=== PATIENT | female | born 1945 | race Caucasian/White ===

== ENCOUNTER 2017-08-23 07:03 | Observation (INO) | payer MEDICARE, OTHER, BC ==
[~2017-08-23] VITALS: Ht 160 cm; Wt 72.5 kg
[2017-08-23 07:05] VITALS: BP 175/100; PULSE 70; RESP 16; TEMP 98.1; O2SAT 96
[2017-08-23] MEDS ORDERED: MAGN250T11 PO (07:39)
[2017-08-23] MEDS ORDERED: SPIR25 PO (07:39)
[2017-08-23] MEDS ORDERED: CALC12502 PO (07:39)
[2017-08-23] MEDS ORDERED: MACR100C3 PO (07:39)
[2017-08-23] MEDS ORDERED: PRIL20TA2 PO (07:39)
[2017-08-23] MEDS ORDERED: CORE25TA PO (07:39)
[2017-08-23] MEDS ORDERED: COUM5TAB PO (07:39)
--- NOTE | 2017-08-23 07:42 | PD ---
HPI Chief Complaint: Dizziness Time Seen by Provider: 07:23 Travel History International Travel<30 days: No Contact w/Intl Traveler<30days: No Traveled to known affect area: No History of Present Illness HPI 72-year-old female complains of dizziness and chest pain. Patient states that she started having dizziness and UTI symptom 3 days ago. Patient states that the dizziness was transient and got better. Patient states that she had nausea with the dizziness. Patient was seen at urgent care Center 3 days ago and was diagnosed with UTI. Patient was given prescription for Macrodantin. Patient has been taking the medication as directed. Patient started having dizziness again since last night. Patient states that she has nausea with the dizziness. Patient states that the dizziness is worse with head movement. Patient started having substernal chest pressure since last night also. Patient denies any pain radiation. Patient denies palpitation diaphoresis. Patient has history of viral cardiomyopathy. Patient states that her ejection fraction around 45-50%. Patient denies history hypertension, diabetes. Patient has history of hyperlipidemia. Patient has family history of heart disease. Patient is a nonsmoker. Patient states that the chest discomfort is intermittent. Patient denies any chest pain now. Patient has history of hypercoagulable state and on Coumadin. PFSH Past Medical History Hx Anticoagulant Therapy: Yes Cardiomyopathy: Yes (Dr. Oliver ) Cardiovascular Problems: Yes High Cholesterol: Yes Diminished Hearing: No Medical other: Yes (hyperphospholipid syndrome since , on coumadin) ?: Not Past Surgical History Hysterectomy: Yes Social History Alcohol Use: No Tobacco Use: No Substance Use: No Allergies-Medications (Allergen,Severity, Reaction): Coded Allergies: codeine (Verified Allergy, Severe, Rash, 08/23/17) nut - unspecified (Verified Allergy, Severe, Shortness of Breath, 08/23/17) Reported Meds & Prescriptions Reported Meds & Active Scripts Active Reported Macrodantin (Nitrofurantoin Macrocrystal) 100 Mg Cap 100 Mg PO QID Calcium (Oyster Shell) 500 Mg Calcium (1250 Mg) Tab 500 Mg PO DAILY Prilosec (Omeprazole Magnesium) 20 Mg Tab 25 Mg PO DIRECTED TAKE NEEDED FOR GERD Magnesium Oxide 250 Mg Tab 250 Mg PO DAILY Coumadin (Warfarin) 5 Mg Tab 5 Mg PO DAILY TAKE 2.5MG ON MON,WED,FRI AND 5MG TUES, THDIANE, SAT, SUN Aldactone (Spironolactone) 25 Mg Tab 25 Mg PO DAILY Coreg (Carvedilol) 25 Mg Tab 25 Mg PO BID Review of Systems General / Constitutional: No: Fever Eyes: No: Visual changes HENT: Positive: Lightheadedness, No: Headaches Cardiovascular: Positive: Chest Pain or Discomfort Respiratory: No: Shortness of Breath Gastrointestinal: No: Abdominal Pain Genitourinary: No: Dysuria Musculoskeletal: No: Pain Skin: No Rash Neurologic: No: Weakness Psychiatric: No: Depression Endocrine: No: Polydipsia Hematologic/Lymphatic: No: Easy Bruising Physical Exam Narrative GENERAL: Well-nourished, well-developed patient. SKIN: Focused skin assessment warm/dry. HEAD: Normocephalic. EYES: No scleral icterus. No injection or drainage. Pupil 1.5 mm equal reactive. TM: Clear. NECK: Supple, trachea midline. No JVD or lymphadenopathy. CARDIOVASCULAR: Regular rate and rhythm without murmurs, gallops, or rubs. RESPIRATORY: Breath sounds equal bilaterally. No accessory muscle use. GASTROINTESTINAL: Abdomen soft, non-tender, nondistended. MUSCULOSKELETAL: No cyanosis, or edema. BACK: Nontender without obvious deformity. No CVA tenderness. Neurologic exam normal. Data Data Last Documented VS Vital Signs Date Time Temp Pulse Resp B/P (MAP) Pulse Ox O2 Delivery O2 Flow Rate FiO2 08/23/17 07:05 98.1 70 16 175/100 (125) 96 Room Air Orders Orders Electrocardiogram (08/23/17 ) Electrocardiogram (08/23/17 07:33) Complete Blood Count With Diff (08/23/17 07:33) Comprehensive Metabolic Panel (08/23/17 07:33) Creatine Kinase (Cpk) (08/23/17 07:33) Troponin I (08/23/17 07:33) B-Type Natriuretic Peptide (08/23/17 07:33) Prothrombin Time / Inr (Pt) (08/23/17 07:33) Act Partial Throm Time (Ptt) (08/23/17 07:33) Chest, Single Ap (08/23/17 07:33) Iv Access Insert/Monitor (08/23/17 07:33) Ecg Monitoring (08/23/17 07:33) Oximetry (08/23/17 07:33) Meclizine (Antivert) (08/23/17 07:45) Labs Laboratory Tests Test 08/23/17 07:30 White Blood Count 7.9 TH/MM3 Red Blood Count 4.54 MIL/MM3 Hemoglobin 15.4 GM/DL Hematocrit 44.8 % Mean Corpuscular Volume 98.7 FL Mean Corpuscular Hemoglobin 33.8 PG Mean Corpuscular Hemoglobin Concent 34.2 % Red Cell Distribution Width 12.6 % Platelet Count 278 TH/MM3 Mean Platelet Volume 7.5 FL Neutrophils (%) (Auto) 65.3 % Lymphocytes (%) (Auto) 27.7 % Monocytes (%) (Auto) 5.5 % Eosinophils (%) (Auto) 1.0 % Basophils (%) (Auto) 0.5 % Neutrophils # (Auto) 5.1 TH/MM3 Lymphocytes # (Auto) 2.2 TH/MM3 Monocytes # (Auto) 0.4 TH/MM3 Eosinophils # (Auto) 0.1 TH/MM3 Basophils # (Auto) 0.0 TH/MM3 CBC Comment DIFF FINAL Differential Comment Prothrombin Time 16.5 SEC Prothromb Time International Ratio 1.6 RATIO Activated Partial Thromboplast Time 32.0 SEC Blood Urea Nitrogen 12 MG/DL Creatinine 0.68 MG/DL Random Glucose 95 MG/DL Total Protein 7.1 GM/DL Albumin 3.8 GM/DL Calcium Level 8.9 MG/DL Alkaline Phosphatase 72 U/L Aspartate Amino Transf (AST/SGOT) 21 U/L Alanine Aminotransferase (ALT/SGPT) 24 U/L Total Bilirubin 0.8 MG/DL Sodium Level 137 MEQ/L Potassium Level 4.1 MEQ/L Chloride Level 103 MEQ/L Carbon Dioxide Level 26.0 MEQ/L Anion Gap 8 MEQ/L Estimat Glomerular Filtration Rate 85 ML/MIN Total Creatine Kinase 82 U/L Troponin I LESS THAN 0.02 NG/ML B-Type Natriuretic Peptide 33 PG/ML MDM Medical Decision Making Medical Screen Exam Complete: Yes Emergency Medical Condition: Yes Interpretation(s) 8:41 AM. Last Impressions Chest X-Ray 08/23/17732 Signed Impressions: Service Date/Time: Wednesday, August 23, 2017 07:50 - CONCLUSION: No acute disease. Doroteo Cheung MD 8:41 AM. CBC within normal limit. CMP within normal limit. Cardiac enzymes are normal. INR 1.6. Differential Diagnosis Differential diagnosis including positional vertigo, musculoskeletal, angina, [place] , PE, pneumothorax. Narrative Course 72-year-old female with dizziness and chest pain. History of positional vertigo in the past. History of cardiomyopathy. Meclizine 25 mg by mouth given. Diagnosis Primary Impression: Chest pain Qualified Codes: R07.9 - Chest pain, unspecified Additional Impression: Acute onset of severe vertigo Admitting Information Admitting Physician Requests: Observation John Leavitt MD Aug 23, 2017 07:42
[2017-08-23] MEDS ORDERED: MECLIZINE HCL 25 MG TAB PO ONE (07:45)
[2017-08-23 07:54] LABS: AUTOMATED NEUTROPHIL # 5.1 TH/MM3 (1.8-7.7); BASOPHIL % 0.5 % (0.0-2.0); EOSINOPHIL # 0.1 TH/MM3 (0-0.4); HEMATOCRIT 44.8 % (35.0-46.0); HEMOGLOBIN 15.4 GM/DL (11.6-15.3); LYMPH % 27.7 % (9.0-44.0); LYMPHOCYTE # 2.2 TH/MM3 (1.0-4.8); MEAN CELL VOLUME 98.7 FL (80.0-100.0); MEAN CORPUSCULAR HEMOGLOBIN 33.8 PG (27.0-34.0); MEAN CORPUSCULAR HGB CONC 34.2 % (32.0-36.0); MEAN PLATELET VOLUME 7.5 FL (7.0-11.0); MONO % 5.5 % (0.0-8.0); MONOCYTE # 0.4 TH/MM3 (0-0.9); NEUT % 65.3 % (16.0-70.0); PLATELET COUNT 278 TH/MM3 (150-450); RED BLOOD COUNT 4.54 MIL/MM3 (4.00-5.30); RED CELL DISTRIBUTION WIDTH 12.6 % (11.6-17.2); WHITE BLOOD COUNT 7.9 TH/MM3 (4.0-11.0)
[2017-08-23 08:02] LABS: INTERNATIONAL NORMALIZED RATIO 1.6 RATIO; PROTHROMBIN TIME - PATIENT 16.5 SEC (9.8-11.6)
[2017-08-23 08:07] LABS: ALBUMIN 3.8 GM/DL (3.4-5.0); ALT (GPT) 24 U/L (10-53); AST (GOT) 21 U/L (15-37); BLOOD UREA NITROGEN 12 MG/DL (7-18); CALCIUM 8.9 MG/DL (8.5-10.1); CHLORIDE 103 MEQ/L (98-107); CREATININE 0.68 MG/DL (0.50-1.00); GLOMERULAR FILTRATION RATE 85 ML/MIN (>89); GLUCOSE,RANDOM 95 MG/DL (74-106); SODIUM (NA) 137 MEQ/L (136-145)
[2017-08-23 08:11] LABS: ALKALINE PHOSPHATASE 72 U/L (45-117); TOTAL BILIRUBIN ADULT 0.8 MG/DL (0.2-1.0); TOTAL PROTEIN 7.1 GM/DL (6.4-8.2); TROPONIN I LESS THAN 0.02 NG/ML (0.02-0.05)
--- NOTE | 2017-08-23 08:28 | RADRPT ---
EXAM DATE/TIME: 08/23/2017 07:50 [facility] COMPARISON: No previous studies available for comparison. INDICATIONS : Chest pains with pressure and dizziness. MEDICAL HISTORY : None. SURGICAL HISTORY : None. ENCOUNTER: Initial ACUITY: 1 day PAIN SCORE: 7/10 LOCATION: Bilateral chest FINDINGS: A single view of the chest demonstrates the lungs to be symmetrically aerated without evidence of mas s, infiltrate or effusion. The cardiomediastinal contours are unremarkable. Osseous structures are intact. Left humeral prosthesis. CONCLUSION: No acute disease. Doroteo Cheung MD on August 23, 2017 at 8:25 Board Certified Radiologist. This report was verified electronically.
[2017-08-23 09:00] VITALS: BP 142/82; PULSE 61; RESP 17; O2SAT 97
[2017-08-23] MEDS ORDERED: SODIUM CHLORIDE 0.9% FLUSH 10 ML FLUSH IV FLUSH SCH (09:00)
[2017-08-23] MEDS ORDERED: SODIUM CHLORIDE 0.9% FLUSH 10 ML FLUSH IV FLUSH PRN (09:00)
[2017-08-23] MEDS ORDERED: ONDANSETRON HCL 4 MG/2 ML VIAL IV PUSH PRN (09:00)
[2017-08-23] MEDS ORDERED: ACETAMINOPHEN 500 MG CPLT PO PRN (09:00)
[2017-08-23 09:50] VITALS: BP 160/86; PULSE 60; RESP 16; O2SAT 96
--- NOTE | 2017-08-23 10:24 | HHI.HP ---
HPI Primary Care Physician Unknown Chief Complaint Chest pain History of Present Illness This is a 72-year-old female that presents to ED via private vehicle with complaints of chest pain and dizziness. States she has history of a cardiomyopathy secondary to bilateral illness in 2001 with recent 2-D echo in [place] having an EF of 45-50%. States that her first symptoms began 5 days ago, she was awoken and felt as if the room was spinning. No other symptoms. She went back to sleep. When she woke up afterwards she was feeling okay. However 3 days ago she began to have burning and frequency with urination as well as hematuria and went to an urgent care center was placed on Macrodantin. States that the symptoms have began to improve. No longer having hematuria in the burning with urination has resolved. Still little frequent urination. No fevers. Also over the last 3 days she's had intermittent dizziness and this seems ago has worsened. At times it feels as if the room is spinning and L at times it feels as if she is just unsteady on her feet. Over the last 2 days she has had a funny sensation in the center of her chest. It will usually last 5-10 minutes. The sensation has also been intermittently associated with dizziness. States it is not a pain. States it feels similar to when she was told that she was having PVCs. Had the same sensation and dizziness while in [place] a few years ago and had a Holter monitor and was told that it was PVCs. He was told to take magnesium supplementation. Carvedilol dose was increased. She has had intermittent nausea with the dizziness and with the sensation that she has had the center of her chest. No shortness of breath or diaphoresis. States that she had a cardiac catheterization in 2001 when she was diagnosed with a cardiomyopathy that was nonischemic. States she was told there are no blockages. She had a stress test 2 years ago in [place] and was told that she did fine. It was an ETT. 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 Oliver once a year and has an appointment with him at the end of August. States the dizziness is worsened when she sits up or turns her head. She was given meclizine in the ED which has not changed her symptoms, however this was just given to her moments ago. Denies swelling in her legs. Denies calf pain. Review of Systems General: Patient denies fevers, chills recent, and recent travel HEENT: Patient denies headache, sore throat, difficulty swallowing. Cardiovascular: Has the chest discomfort as mentioned above. Denies sensation of heart beating rapidly or irregularly. No syncope. Denies diaphoresis. Respiratory: Denies shortness of breath or inspirational chest discomfort. Denies coughing wheezing or hemoptysis. GI: She has had intermittent nausea. Patient denies vomiting, diarrhea, abdominal pain, bloody stools. : Had frequency, dysuria, and hematuria. Dysuria and hematuria has resolved since being on antibiotics however she still is a little bit of frequency. Musculoskeletal: Patient denies joint pain or edema. Denies calf pain or edema. Neurovascular: She has felt dizzy. Patient denies numbness, tingling, weakness in extremities. Denies headache. Endocrine: Denies polyuria and polydipsia. Hematologic: Denies easy bruising. Skin: Denies rash or itching. Past Family Social History Allergies: Coded Allergies: codeine (Verified Allergy, Severe, Rash, 08/23/17) nut - unspecified (Verified Allergy, Severe, Shortness of Breath, 08/23/17) Past Medical History History of a nonischemic cardiomyopathy. States it was secondary to bilateral illness in 2001. Last echo was June 2017 in [place] and she states EF was 45- 50%. 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 Has had no DVTs or PEs for 40-45 years. Has been on warfarin for quite some time. Checks her INR is at home and 5 days ago is 1.8. GERD. Denies CAD, hyperlipidemia, diabetes, and hypertension. Past Surgical History Hysterectomy. Reported Medications Reported Meds & Active Scripts Active Reported Macrodantin (Nitrofurantoin Macrocrystal) 100 Mg Cap 100 Mg PO QID Calcium (Oyster Shell) 500 Mg Calcium (1250 Mg) Tab 500 Mg PO DAILY Prilosec (Omeprazole Magnesium) 20 Mg Tab 25 Mg PO DIRECTED TAKE NEEDED FOR GERD Magnesium Oxide 250 Mg Tab 250 Mg PO DAILY Coumadin (Warfarin) 5 Mg Tab 5 Mg PO DAILY TAKE 2.5MG ON MON,WED,FRI AND 5MG , , MON, MON Aldactone (Spironolactone) 25 Mg Tab 25 Mg PO DAILY Coreg (Carvedilol) 25 Mg Tab 25 Mg PO BID Active Ordered Medications Current Medications Medications (Trade) Dose Ordered Sig/Yesenia Route Start Time Stop Time Status Last Admin (NS Flush) 2 ml UNSCH PRN IV FLUSH 08/23/17 09:00 (NS Flush) 2 ml BID IV FLUSH 08/23/17 09:00 (Tylenol) 500 mg Q4H PRN PO 08/23/17 09:00 (Zofran Inj) 4 mg Q6H PRN IV PUSH 08/23/17 09:00 Family History Her mother had CAD with onset in her 70s. Social History Lifetime nonsmoker. Denies alcohol or illicit drugs. She lives alone, she is a . Physical Exam Vital Signs Vital Signs Date Time Temp Pulse Resp B/P (MAP) Pulse Ox O2 Delivery O2 Flow Rate FiO2 08/23/17 09:50 60 16 160/86 (110) 96 Room Air 08/23/17 09:00 61 17 142/82 (102) 97 Room Air 08/23/17 07:05 98.1 70 16 175/100 (125) 96 Room Air Physical Exam GENERAL: This is a well-nourished, well-developed patient, in no apparent distress. Patient speaks in clear complete sentences. Patient is pleasant. HEENT: Head is atraumatic and normocephalic. Neck is supple without lymphadenopathy and trachea is midline. No JVD or carotid bruits. CARDIOVASCULAR: Regular rate and rhythm without murmurs, gallops, or rubs. RESPIRATORY: Clear to auscultation. Breath sounds equal bilaterally. No wheezes , rales, or rhonchi. Chest wall is nontender. No use of accessory muscles. GASTROINTESTINAL: Abdomen is nontender, nondistended. Abdomen soft. No obvious pulsatile mass or bruit. No CVA tenderness. Strong femoral pulses bilaterally. Normal bowel sounds in all quadrants. MUSCULOSKELETAL: Patient is moving upper and lower extremities freely. No calf tenderness or edema, no Homans sign. Strong pulses in upper and lower extremities. NEUROLOGICAL: Patient is alert and oriented. Cranial nerves 2-12 are grossly intact. No focal deficits and speech is clear. SKIN: No rash and turgor is normal. Laboratory Laboratory Tests Test 08/23/17 07:30 White Blood Count 7.9 Red Blood Count 4.54 Hemoglobin 15.4 Hematocrit 44.8 Mean Corpuscular Volume 98.7 Mean Corpuscular Hemoglobin 33.8 Mean Corpuscular Hemoglobin Concent 34.2 Red Cell Distribution Width 12.6 Platelet Count 278 Mean Platelet Volume 7.5 Neutrophils (%) (Auto) 65.3 Lymphocytes (%) (Auto) 27.7 Monocytes (%) (Auto) 5.5 Eosinophils (%) (Auto) 1.0 Basophils (%) (Auto) 0.5 Neutrophils # (Auto) 5.1 Lymphocytes # (Auto) 2.2 Monocytes # (Auto) 0.4 Eosinophils # (Auto) 0.1 Basophils # (Auto) 0.0 CBC Comment DIFF FINAL Differential Comment Prothrombin Time 16.5 Prothromb Time International Ratio 1.6 Activated Partial Thromboplast Time 32.0 Blood Urea Nitrogen 12 Creatinine 0.68 Random Glucose 95 Total Protein 7.1 Albumin 3.8 Calcium Level 8.9 Alkaline Phosphatase 72 Aspartate Amino Transf (AST/SGOT) 21 Alanine Aminotransferase (ALT/SGPT) 24 Total Bilirubin 0.8 Sodium Level 137 Potassium Level 4.1 Chloride Level 103 Carbon Dioxide Level 26.0 Anion Gap 8 Estimat Glomerular Filtration Rate 85 Total Creatine Kinase 82 Troponin I LESS THAN 0.02 B-Type Natriuretic Peptide 33 Result Diagram: 08/23/1772908/23/17729 Imaging Last 48 hours Impressions Chest X-Ray 08/23/17732 Signed Impressions: Service Date/Time: Wednesday, August 23, 2017 07:50 - CONCLUSION: No acute disease. Doroteo Cehung MD Course Initial EKG is sinus rhythm rate of [address] segment depressions or elevations. Caprini VTE Risk Assessment Caprini VTE Risk Assessment: Mod/High Risk (score >= 2) Caprini Risk Assessment Model Point Value = 1 Point Value = 2 Point Value = 3 Point Value = 5 Age 41-60 Minor surgery BMI > 25 kg/m2 Swollen legs Varicose veins or History of unexplained or recurrent spontaneous Oral contraceptives or hormone replacement Sepsis (< 1 month) Serious lung disease, including pneumonia (< 1 month) Abnormal pulmonary function Acute myocardial infarction Congestive heart failure (< 1 month) History of inflammatory bowel disease Medical patient at bed rest Age 61-74 Arthroscopic surgery Major open surgery (> 45 min) Laparoscopic surgery (> 45 min) Malignancy Confined to bed (> 72 hours) Immobilizing plaster cast Central venous access Age >= 75 History of VTE Family history of VTE Factor V Leiden Prothrombin [id number] Lupus anticoagulant Anticardiolipin antibodies Elevated serum homocysteine Heparin-induced thrombocytopenia Other congenital or acquired thrombophilia Stroke (< 1 month) Elective arthroplasty Hip, pelvis, or leg fracture Acute spinal cord injury (< 1 month) Prophylaxis Regimen Total Risk Factor Score Risk Level Prophylaxis Regimen 0-1 Low Early ambulation 2 Moderate Order ONE of the following: *Sequential Compression Device (SCD) *Heparin 5000 units SQ BID 3-4 Higher Order ONE of the following medications: *Heparin 5000 units SQ TID *Enoxaparin/Lovenox 40 mg SQ daily (WT < 150 kg, CrCl > 30 mL/min) *Enoxaparin/Lovenox 30 mg SQ daily (WT < 150 kg, CrCl > 10-29 mL/min) *Enoxaparin/Lovenox 30 mg SQ BID (WT < 150 kg, CrCl > 30 mL/min) AND/OR *Sequential Compression Device (SCD) 5 or more Highest Order ONE of the following medications: *Heparin 5000 units SQ TID (Preferred with Epidurals) *Enoxaparin/Lovenox 40 mg SQ daily (WT < 150 kg, CrCl > 30 mL/min) *Enoxaparin/Lovenox 30 mg SQ daily (WT < 150 kg, CrCl > 10-29 mL/min) *Enoxaparin/Lovenox 30 mg SQ BID (WT < 150 kg, CrCl > 30 mL/min) AND *Sequential Compression Device (SCD) Assessment and Plan Assessment and Plan * Chest pain: Patient complains of a sensation in her chest that was odd. [place] similar to when she was having PVCs in the past that was detected on a Holter monitor. Patient will continue to have serial cardiac enzymes and EKGs for ruling out purposes. She'll be seen by Dr. Damion Hutton of cardiology in the chest pain center and at that time further plan will be decided. * Cardiomyopathy: Patient is on medication for this. We will continue this. * Hyper phospholipid syndrome: Doing warfarin this morning pending evaluation by Dr. Damion Hutton for further plan. She will have SCDs. Will resume medication afterwards. Patient is stable at this time. She is agreeable to this plan. Camacho Johns Aug 23, 2017 10:24
[2017-08-23] MEDS ORDERED: WARF-18 PO ×2 (10:33)
[2017-08-23 11:01] VITALS: BP 163/84; PULSE 64; RESP 16; O2SAT 97
[2017-08-23 11:31] LABS: TROPONIN I LESS THAN 0.02 NG/ML (0.02-0.05)
[2017-08-23] MEDS ORDERED: CARVEDILOL 12.5 MG TAB PO SCH (13:15)
[2017-08-23] MEDS ORDERED: SPIRONOLACTONE 25 MG TAB PO SCH (13:15)
[2017-08-23] MEDS ORDERED: MAGNESIUM OXIDE 400 MG TAB PO SCH (13:30)
[2017-08-23] MEDS ORDERED: PILL SPLITTER OTHER PRN (13:30)
--- NOTE | 2017-08-23 14:02 | EKG ---
Date Performed: 08/23/2017 Time Performed: 10:48:57 PTAGE: 72 years EKG: Sinus rhythm MINIMAL VOLTAGE CRITERIA FOR LVH, CONSIDER NORMAL VARIANT BORDERLINE ECG No significant change from prior electrocardiogram. PREVIOUS TRACING : 08/23/2017 07.24 DOCTOR: Aristides De Jesus Interpretating Date/Time 08/23/2017 14:01:52
--- NOTE | 2017-08-23 14:08 | EKG ---
Date Performed: 08/23/2017 Time Performed: 07:24:46 PTAGE: 72 years EKG: Baseline artifact present Sinus rhythm BORDERLINE LEFT AXIS DEVIATION Nonspecific T wave changes ABNORMAL ECG NO PREVIOUS TRACING DOCTOR: Aristides De Jesus Interpretating Date/Time 08/23/2017 14:07:21
[2017-08-23] MEDS ORDERED: REGADENOSON INJ 0.4 MG/5 ML SYR ONE (14:56)
--- NOTE | 2017-08-23 17:02 | RADRPT ---
EXAM DATE/TIME: 08/23/2017 14:45 [facility] COMPARISON: No previous studies available for comparison. INDICATIONS : Chest pain and dizziness. Angina. DOSE: 25.8 mCi Tc99m Myoview at stress. 8.3 mCi Tc99m Myoview at rest. 0.4 mg Lexiscan STRESS SYMPTOMS: Dyspnea, lightheadedness and chest pressure. EJECTION FRACTION: 60% MEDICAL HISTORY : Hypercholesterolemia. hyperphospholipid syndrome. SURGICAL HISTORY : Rotator cuff, left. ENCOUNTER: Initial ACUITY: 1 day PAIN SCALE: 0/10 LOCATION: Substernal chest TECHNIQUE: The patient underwent pharmacologic stress with infusion of prescribed dose. Continuous ECG tracing was monitored during stress. Gated SPECT imaging was performed after stress and conventional SPECT i maging was performed at rest. The examination was performed on a SPECT/CT scanner, both attenuation and non-corrected datasets were reviewed. FINDINGS: DISTRIBUTION: The maximum perfused segment at stress is in the anterior lateral wall. PERFUSION STUDY: There is a summed stress score of 8. There is a small to moderate fixed defect involving the anterior wall with no reversibility. GATED STUDY: There is intact wall motion and thickening without hypokinetic or dyskinetic segments. CONCLUSION: 1. Small to moderate fixed defect involving the anterior wall which could represent an area of infarc tion. 2. Normal wall motion and calculated ejection fraction. RISK CATEGORY: Low (<1% Annual Mortality Rate) Herb Dutton MD on August 23, 2017 at 16:56 Board Certified Radiologist. This report was verified electronically.
--- NOTE | 2017-08-23 17:06 | HHI.DCPOC ---
Discharge Care Plan Diagnosis: (1) Chest pain (2) Acute onset of severe vertigo Goals to Promote Your Health Use over the counter meclizine or antivert for dizziness. * To prevent worsening of your condition and complications * To maintain your health at the optimal level Directions to Meet Your Goals Take your medications as prescribed Follow your dietary instruction Follow activity as directed Keep your appointments as scheduled Take your immunizations and boosters as scheduled If your symptoms worsen call your PCP, if no PCP go to Urgent Care Center or Emergency Room Smoking is Dangerous to Your Health. Avoid second hand smoke Call the 24-hour hour crisis hotline for domestic abuse at Camacho Johns Aug 23, 2017 17:06
[2017-08-23] MEDS ORDERED: WARFARIN SOD 5 MG TAB PO ONE (17:15)
[2017-08-23 17:29] VITALS: BP 112/76; PULSE 74; RESP 16; TEMP 98.1; O2SAT 93
[2017-08-23] MEDS ORDERED: NITROFURANTOIN MONOHYD MACROCR 100 MG CAP PO SCH (18:00)
--- NOTE | 2017-08-24 10:55 | TR ---
Date Performed: 08/23/2017 Time Performed: 15:09:08 DOCTOR: Lele Ma DRUG LIST: CLINICAL HISTORY: REASON FOR TEST: CHEST PAIN REASON FOR ENDING: OBSERVATION: CONCLUSION: COMMENTS:
== END 2017-08-23 18:14 | disposition home or self-care (01) ==
LOC: NEPC 07:03 → NEDA 09:25 → NEPFCDU 16:26
PROVIDERS: ADMIT Internal Medicine Cardiovascular Disease; ATTEND Internal Medicine Cardiovascular Disease
DX: R07.89 Other chest pain (principal); R42 Dizziness and giddiness; N39.0 Urinary tract infection, site not specified; E78.5 Hyperlipidemia, unspecified; K21.9 Gastro-esophageal reflux disease without esophagitis; I49.3 Ventricular premature depolarization; I42.9 Cardiomyopathy, unspecified; R94.31 Abnormal electrocardiogram [ECG] [EKG]; Z79.01 Long term (current) use of anticoagulants; E78.00 Pure hypercholesterolemia, unspecified; Z86.711 Personal history of pulmonary embolism; Z86.718 Personal history of other venous thrombosis and embolism; Z90.710 Acquired absence of both cervix and uterus
CPT/HCPCS: 71045; 78452; 80053; 82550; 82552; 83880; 84484; 85025; 85610; 85730; 93005; 93017; 99285; A9502; G0378; J2785